=== PATIENT | male | born 1960 ===

== ENCOUNTER 2023-11-09 23:02 | Inpatient (IN) | payer MEDICARE, OTHER ==
[~2023-11-09] VITALS: Ht 172.7 cm; Wt 117.9 kg
[2023-11-09] MEDS ORDERED: ASPI81TA31 PO (23:26)
[2023-11-09] MEDS ORDERED: ATOR40TA PO (23:26)
[2023-11-09] MEDS ORDERED: CLOT15CR27 TP (23:26)
[2023-11-09] MEDS ORDERED: voltaren TOP (23:26)
[2023-11-09] MEDS ORDERED: SERT25TA PO (23:26)
[2023-11-09] MEDS ORDERED: TAMS-3 PO (23:26)
[2023-11-09] MEDS ORDERED: INSU100V7 SQ (23:26)
[2023-11-09] MEDS ORDERED: CETI-90 PO (23:26)
[2023-11-09] MEDS ORDERED: SEMA0.25 SQ (23:26)
[2023-11-09] MEDS ORDERED: LISI10TA29 PO (23:26)
[2023-11-09] MEDS ORDERED: EMPA25TA PO (23:26)
[2023-11-09] MEDS ORDERED: HYDR25TA4 PO (23:26)
[2023-11-09] MEDS ORDERED: METF-442 PO (23:26)
[2023-11-09 23:41] LABS: BASOPHILS # (AUTO) 0.1 K/UL (0.0-0.2); BASOPHILS % (AUTO) 1.8 % (0.0-2.0); EOSINOPHILS # (AUTO) 0.2 K/uL (0.0-0.7); EOSINOPHILS % (AUTO) 2.9 % (0.0-7.0); HEMATOCRIT 39.9 % (36.7-47.1); HEMOGLOBIN 13.2 g/dL (12.5-16.3); LYMPHOCYTES % (AUTO) 13.4 % (20.5-51.5); MEAN CORPUSCULAR HEMOGLOBIN 27.7 uug (23.8-33.4); MEAN CORPUSCULAR HGB CONC 33 g/dL (32.5-36.3); MONOCYTES # (AUTO) 0.3 K/uL (0.1-1.30); MONOCYTES % (AUTO) 4.4 % (0.0-11.0); NEUTROPHILS # (AUTO) 5.5 K/uL (1.8-8.9); NEUTROPHILS % (AUTO) 77.5 % (38.5-71.5); PLATELET COUNT (AUTO) 201 K/uL (152-348); RED BLOOD CELL COUNT(AUTO) 4.76 MIL/uL (4.06-5.63); RED CELL DISTRIBUTION WIDTH 14.3 % (12.1-16.2); WHITE BLOOD COUNT (AUTO) 7.2 K/uL (3.6-10.2)
[2023-11-09 23:45] LABS: *BILIRUBIN,URIN NEGATIVE (NEGATIVE); *BLOOD, URINE NEGATIVE (NEGATIVE); *CLARITY,URINE CLEAR (CLEAR); *COLOR,URINE YELLOW (YELLOW); *KETONES,URINE NEGATIVE (NEGATIVE); *PROTEIN,URINE NEGATIVE (NEGATIVE); *UROBILINOGEN,URINE 0.2 E.U./dl (NORMAL); LEUKOCYTE ESTERASE ,URINE NEGATIVE (NEGATIVE); NITRITE, URINE NEGATIVE (NEGATIVE); PH,URINE 6.5 (5.0-8.0); UGLUCOSE NEGATIVE (NEGATIVE)
[2023-11-09 23:46] LABS: CALCIUM 9.3 mg/dL (8.5-10.1); CARBON DIOXIDE 30 mmol/L (21-32); CHLORIDE 101 mmol/L (98-107); CREATININE 0.6 mg/dL (0.6-1.3); GLUCOSE 200 mg/dL (74-106); SODIUM SERUM 138 mmol/L (136-145); UREA NITROGEN, BLOOD 10 mg/dL (7-18)
[2023-11-09 23:48] LABS: DIFFERENTIAL COMMENT 1
[2023-11-09 23:52] LABS: ETHANOL < 3 MG/DL (0-10)
[2023-11-09 23:53] LABS: ALANINE AMINOTRANSFERASE 98 U/L (16-63); ALBUMIN 3.3 g/dL (3.4-5.0); ALKALINE PHOSPHATASE 70 U/L (50-136); ASPARTATE AMINOTRANSFERASE 43 U/L (15-37); BILIRUBIN,TOTAL 0.6 mg/dL (0.2-1.0)
[2023-11-09 23:58] LABS: *AMPHETAMINE, URINE NEGATIVE (NEGATIVE); *BARBITURATE, URINE NEGATIVE (NEGATIVE); *BENZODIAZEPINE, URINE NEGATIVE (NEGATIVE); *CANNABINOID, URINE NEGATIVE (NEGATIVE); *COCCAINE, URINE NEGATIVE (NEGATIVE); *OPIATE, URINE NEGATIVE (NEGATIVE); *PHENCYCLIDINE SCREEN,URINE NEGATIVE (NEGATIVE); FENTANYL, URINE NEGATIVE (NEGATIVE)
[2023-11-09 23:59] LABS: ACETAMINOPHEN < 10.0 ug/mL (10-30)
[2023-11-10 02:57] VITALS: BP 163/78; TEMP 97.6; O2SAT 94
[2023-11-10] MEDS ORDERED: LORAZEPAM 0.5 MG TABLET PO PRN (03:00)
[2023-11-10] MEDS ORDERED: MAG HYDROX/AL HYDROX/SIMETH 30 ML LIQUID UDC PO PRN (03:00)
[2023-11-10 07:58] VITALS: BP 125/54; TEMP 98.3; O2SAT 98
[2023-11-10] MEDS ORDERED: DEXTROSE 50% 50 ML DISP.SYRIN IV PRN (13:15)
[2023-11-10] MEDS: HYDROCHLOROTHIAZIDE 25 MG TABLET PO SCH (13:15)
[2023-11-10] MEDS: LISINOPRIL 10 MG TABLET PO SCH (13:15)
[2023-11-10] MEDS: SERTRALINE HCL 100 MG TABLET PO SCH (14:19)
[2023-11-10] MEDS: ASPIRIN 81 MG TAB.CHEW PO SCH (14:20)
[2023-11-10 16:21] VITALS: BP 150/69; TEMP 98; O2SAT 98
[2023-11-10] MEDS: BLOOD SUGAR DIAGNOSTIC 1 EACH STRIP VI SCH (16:42)
[2023-11-10] MEDS: CLOTRIMAZOLE 1% CREAM 30 GM TUBE TP SCH (16:44)
[2023-11-10] MEDS: INSULIN GLARGINE,HUM 300 UNITS/3 ML CARTRIDGE SQ SCH (17:12)
[2023-11-10] MEDS: INSULIN REGULAR, HUMAN 1000 UNIT/10 ML VIAL SQ PRN (17:15)
[2023-11-10] MEDS: METFORMIN HCL 500 MG TABLET PO SCH (18:06)
[2023-11-10] MEDS: ATORVASTATIN 40 MG TABLET PO SCH (20:26)
[2023-11-10] MEDS: TAMSULOSIN HCL 0.4 MG CAP.SR.24H PO SCH (20:26)
[2023-11-10] MEDS: ARIPIPRAZOLE 5 MG TABLET PO SCH (20:27)
[2023-11-10 20:52] VITALS: BP 172/80; TEMP 98; O2SAT 98
[2023-11-10 21:30] VITALS: BP 152/74
[2023-11-10] MEDS: ACETAMINOPHEN 325 MG TABLET PO PRN (23:46)
[2023-11-11 08:00] VITALS: BP 124/62; TEMP 98.2; O2SAT 97
[2023-11-11] MEDS: CETIRIZINE HCL 10 MG TABLET PO SCH (08:36)
[2023-11-11 08:57] LABS: ALBUMIN 3.3 g/dL (3.4-5.0); BILIRUBIN,TOTAL 0.6 mg/dL (0.2-1.0); CREATININE 0.7 mg/dL (0.6-1.3); POTASSIUM 4.6 mmol/L (3.5-5.1)
[2023-11-11] MEDS ORDERED: ARIPIPRAZOLE 5 MG TABLET PO SCH (10:15)
[2023-11-11] MEDS: ARIPIPRAZOLE 5 MG TABLET PO SCH (11:31)
[2023-11-11 16:17] VITALS: BP 136/57; TEMP 98; O2SAT 97
[2023-11-11 18:10] LABS: THYROID STIMULATING HORMONE 2.52 mIU/mL (0.358-3.740)
[2023-11-11 20:08] VITALS: BP 130/67; TEMP 98; O2SAT 98
[2023-11-11] MEDS: INSULIN GLARGINE,HUM 300 UNITS/3 ML CARTRIDGE SQ SCH (20:51)
[2023-11-12 08:05] VITALS: BP 111/55; TEMP 97.9; O2SAT 97
[2023-11-12] MEDS: DIVALPROEX 250 MG TABLET.DR PO SCH (15:00)
[2023-11-12 16:24] VITALS: BP 122/69; TEMP 98; O2SAT 97
[2023-11-12 19:51] VITALS: BP 134/65; TEMP 98.2; O2SAT 97
[2023-11-13 07:48] LABS: BILIRUBIN,DIRECT 0.2 mg/dL (0.0-0.2); BILIRUBIN,TOTAL 0.5 mg/dL (0.2-1.0); TOTAL PROTEIN, SERUM 6.4 g/dL (6.4-8.2)
[2023-11-13 08:13] VITALS: BP 137/73; TEMP 98; O2SAT 96
[2023-11-13] MEDS: DIVALPROEX 250 MG TABLET.DR PO SCH ×2 (12:18→20:12)
[2023-11-13 16:03] VITALS: BP 140/79; TEMP 98; O2SAT 96
[2023-11-13 19:49] VITALS: BP 157/71; TEMP 98.1; O2SAT 96
[2023-11-13] MEDS: MAGNESIUM HYDROXIDE 30 ML LIQUID UDC PO PRN (22:28)
[2023-11-13] MEDS: TEMAZEPAM 7.5 MG CAPSULE PO PRN (23:00)
[2023-11-14 07:56] VITALS: BP 120/57; TEMP 98; O2SAT 96
[2023-11-14 15:18] VITALS: BP 110/55; TEMP 98; O2SAT 96
[2023-11-14] MEDS: risperiDONE 0.5 MG TABLET PO SCH (16:17)
[2023-11-14 19:53] VITALS: BP 137/55; TEMP 98.1; O2SAT 96
[2023-11-15 08:57] VITALS: BP 133/79; TEMP 98.2; O2SAT 98
[2023-11-15 15:18] VITALS: BP 122/63; TEMP 98; O2SAT 96
[2023-11-16 07:30] VITALS: BP 95/57; TEMP 98.2; O2SAT 94
[2023-11-16 15:39] VITALS: BP 145/75; TEMP 98; O2SAT 98
[2023-11-16 20:09] VITALS: BP 155/72; TEMP 97.6; O2SAT 97
[2023-11-16] MEDS: risperiDONE 1 MG TABLET PO SCH (20:29)
[2023-11-16] MEDS: risperiDONE 0.5 MG TABLET PO SCH (21:00)
[2023-11-17 08:02] VITALS: BP 133/71; TEMP 98.2; O2SAT 98
[2023-11-17 16:34] VITALS: BP 100/55; TEMP 98.1; O2SAT 98
[2023-11-17 20:39] VITALS: BP 111/52; TEMP 98; O2SAT 99
[2023-11-18 08:30] VITALS: BP 125/76; TEMP 98.2; O2SAT 98
[2023-11-18 16:27] VITALS: BP 106/64; TEMP 98; O2SAT 98
[2023-11-18 20:18] VITALS: BP 124/71; TEMP 98.2; O2SAT 98
[2023-11-19 08:09] VITALS: BP 114/66; TEMP 98.1; O2SAT 97
[2023-11-19 16:39] VITALS: BP 111/60; TEMP 98.1; O2SAT 97
[2023-11-19 21:33] VITALS: BP 167/83; TEMP 98.7; O2SAT 97
[2023-11-20 08:54] VITALS: BP 161/68; TEMP 98; O2SAT 96
[2023-11-20 10:23] VITALS: BP 131/71; O2SAT 98
[2023-11-20 15:32] VITALS: BP 150/71; TEMP 98; O2SAT 98
[2023-11-20] MEDS: risperiDONE 0.5 MG TABLET PO SCH (17:40)
[2023-11-20 20:07] VITALS: BP 116/74; TEMP 98.2; O2SAT 96
[2023-11-21 07:51] LABS: BASOPHILS # (AUTO) 0.1 K/UL (0.0-0.2); BASOPHILS % (AUTO) 0.9 % (0.0-2.0); EOSINOPHILS # (AUTO) 0.1 K/uL (0.0-0.7); HEMATOCRIT 40.4 % (36.7-47.1); HEMOGLOBIN 13.4 g/dL (12.5-16.3); LYMPHOCYTES # (AUTO) 1.2 K/uL (0.8-4.8); LYMPHOCYTES % (AUTO) 20.6 % (20.5-51.5); MEAN CORPUSCULAR HEMOGLOBIN 27.7 uug (23.8-33.4); MEAN CORPUSCULAR HGB CONC 33 g/dL (32.5-36.3); MEAN CORPUSCULAR VOLUME 83.3 fL (73.0-96.2); MONOCYTES # (AUTO) 0.4 K/uL (0.1-1.30); MONOCYTES % (AUTO) 7.1 % (0.0-11.0); NEUTROPHILS # (AUTO) 4.1 K/uL (1.8-8.9); NEUTROPHILS % (AUTO) 69.4 % (38.5-71.5); PLATELET COUNT (AUTO) 203 K/uL (152-348); RED BLOOD CELL COUNT(AUTO) 4.86 MIL/uL (4.06-5.63); RED CELL DISTRIBUTION WIDTH 14.7 % (12.1-16.2)
[2023-11-21 08:08] VITALS: BP 127/70; TEMP 98; O2SAT 96
[2023-11-21 08:09] LABS: DIFFERENTIAL COMMENT 1
[2023-11-21 08:21] LABS: ALANINE AMINOTRANSFERASE 28 U/L (16-63); ALBUMIN 3.3 g/dL (3.4-5.0); ALKALINE PHOSPHATASE 66 U/L (50-136); ASPARTATE AMINOTRANSFERASE 11 U/L (15-37); BILIRUBIN,TOTAL 0.5 mg/dL (0.2-1.0); CALCIUM 9.4 mg/dL (8.5-10.1); CARBON DIOXIDE 34 mmol/L (21-32); CHLORIDE 102 mmol/L (98-107); CREATININE 0.6 mg/dL (0.6-1.3); GLUCOSE 119 mg/dL (74-106); POTASSIUM 3.7 mmol/L (3.5-5.1); SODIUM SERUM 134 mmol/L (136-145); TOTAL PROTEIN, SERUM 7.2 g/dL (6.4-8.2); UREA NITROGEN, BLOOD 13 mg/dL (7-18); VALPROIC ACID 62 ug/mL (50-100)
[2023-11-21 15:36] VITALS: BP 132/80; TEMP 98; O2SAT 98
[2023-11-21 20:14] VITALS: BP 145/76; TEMP 98.1; O2SAT 96
[2023-11-22 08:05] VITALS: BP 139/76; TEMP 98; O2SAT 96
[2023-11-22 15:40] VITALS: BP 146/72; TEMP 98; O2SAT 96
[2023-11-22 20:19] VITALS: BP 144/71; TEMP 98.7; O2SAT 96
[2023-11-23 07:59] VITALS: BP 112/73; TEMP 98; O2SAT 96
[2023-11-23 08:25] LABS: CALCIUM 9.4 mg/dL (8.5-10.1); CARBON DIOXIDE 30 mmol/L (21-32); CHLORIDE 103 mmol/L (98-107); CREATININE 0.6 mg/dL (0.6-1.3); GLUCOSE 128 mg/dL (74-106); POTASSIUM 4.1 mmol/L (3.5-5.1); SODIUM SERUM 142 mmol/L (136-145); UREA NITROGEN, BLOOD 16 mg/dL (7-18)
[2023-11-23 09:07] VITALS: BP 112/73
== END 2023-11-23 13:20 | DRG 885 ==
LOC: ER 23:07 → GPS 11-10 01:11
PROVIDERS: ADMIT Psychiatry & Neurology Psychosomatic Medicine
PROC: 0HBRXZZ Excision of Toe Nail, External Approach (ICD-10-PCS; principal; 2023-11-20)
DX: F39 Unspecified mood [affective] disorder (principal); E11.65 Type 2 diabetes mellitus with hyperglycemia; G92.8 Other toxic encephalopathy; F02.818 Dementia in other diseases classified elsewhere, unspecified severity, with other behavioral disturbance; E44.1 Mild protein-calorie malnutrition; G31.09 Other frontotemporal neurocognitive disorder; E11.42 Type 2 diabetes mellitus with diabetic polyneuropathy; L60.3 Nail dystrophy; E78.5 Hyperlipidemia, unspecified; N40.0 Benign prostatic hyperplasia without lower urinary tract symptoms; Z79.84 Long term (current) use of oral hypoglycemic drugs; Z79.899 Other long term (current) drug therapy; E66.9 Obesity, unspecified; Z68.39 Body mass index [BMI] 39.0-39.9, adult; S91.002A Unspecified open wound, left ankle, initial encounter; X58.XXXA Exposure to other specified factors, initial encounter; Y92.89 Other specified places as the place of occurrence of the external cause; R74.01 Elevation of levels of liver transaminase levels; I10 Essential (primary) hypertension; Z79.4 Long term (current) use of insulin; E88.09 Other disorders of plasma-protein metabolism, not elsewhere classified
CPT/HCPCS: 36415; 70450; 80164; 83921; 84443; 84484; 85025; A4606; A4663; G0480; J1815; J3490